=== PATIENT | female | born 1940 | race Caucasian/White ===

== ENCOUNTER 2020-01-28 09:46 | Emergency (ER) | payer OTHER, MEDICARE, SELFPAY ==
--- NOTE | ~2020-01-28 | XR_ITS ---
EXAMINATION: XR toe 1st LT min 2V DATE: 01/28/2020 11:25 INDICATION: Left great toe injury. TECHNIQUE: 4 views of left great toe were obtained. COMPARISON: None. FINDINGS: Bone alignment is normal. There is a comminuted fracture of base of first distal phalanx wi th involvement of the articular surface. The main distal fracture fragment demonstrates near-anatomic alignment. There is mild osteoarthritis of first metatarsophalangeal joint and first interphalangeal joint. IMPRESSION: 1. Comminuted fracture of first distal phalanx. Reviewed, dictated and finalized at location B. ULTURIST
[2020-01-28 09:53] VITALS: BP 153/107; PULSE 95; RESP 16; TEMP 36.7; O2SAT 100
--- NOTE | 2020-01-28 11:05 | ED.LOWEXIN ---
HPI - Extremity Injury (Lower) General Chief Complaint: Extremity Injury, Lower Stated Complaint: fall, laceration to toe Time Seen by Provider: 01/28/20 10:51 Source: patient Mode of arrival: ambulatory Limitations: no limitations History of Present Illness HPI Narrative: This is a 79 year old female that presents to the ER for left great toe injury sustained just prior to arrival. Reports she was at the pool and got her toe caught on a metal drain. Reports this caused her to fall onto her right side. Denies hitting her head or loss of consciousness. Reports a laceration to the left great toe with pain. She is not up-to-date on tetanus. Denies other injuries, or prodromal symptoms. Related Data Allergies Allergy/AdvReac Type Severity Reaction Status Date / Time No Known Allergies Allergy Verified 01/28/20 09:57 Review of Systems Review of Systems: Narrative: CONSTITUTIONAL: Denies fever SKIN: Reports laceration MUSCULOSKELETAL: Denies back pain, joint pain, or myalgia. All systems reviewed & are unremarkable except as noted in HPI and below PMFSH Past Medical History Medical History (Updated 01/28/20 @ 13:19 by Kimberly Perez PA-C) History of inflammatory bowel disease Social History Social History (Updated 01/28/20 @ 11:09 by Kimberly Perez PA-C) Smoking status: Never smoker Gender identity (if verbalized by the patient): Female Exam Narrative: Exam Narrative: GENERAL: Well-appearing, well-nourished, and in no acute distress. HEAD: Normocephalic, atraumatic. EYES: PERRLA and EOMI. ENT: Nares clear, no rhinorrhea or epistaxis. Mucous membranes moist. Oropharynx without tonsillar hypertrophy exudate or other lesions. Bilateral TMs pearly chapa non-bulging NECK: Supple. No adenopathy or masses. CHEST: Clear to auscultation. No respiratory distress. No wheezes rales or rhonchi HEART: Regular rate and rhythm. No murmur heard. Normal peripheral pulses. EXTREMITIES: Normal range of motion. No edema or obvious deformity. Left great toe with 2 cm linear laceration into subcutaneous tissue of the distal phalanx with mild active oozing SKIN: Warm, dry, no rash. NEURO: No focal deficits. Alert and oriented x3. Cranial nerves II through XII grossly intact PSYCH: Normal mood and affect Course Vital Signs Vital signs: Vital Signs Temperature 98.1 F 01/28/20 09:53 Pulse Rate 95 01/28/20 09:53 Respiratory Rate 16 01/28/20 09:53 Blood Pressure 153/107 H 01/28/20 09:53 Pulse Oximetry 100 01/28/20 09:53 Temperature 98.1 F 01/28/20 09:53 Pulse Rate 95 01/28/20 09:53 Respiratory Rate 16 01/28/20 09:53 Blood Pressure 153/107 H 01/28/20 09:53 Pulse Oximetry 100 01/28/20 09:53 Procedures Laceration Laceration 1: Date: 01/28/20 Time: 13:17 Site: lower extremity Side (If applicable): left Size (cm): 2 Description: linear Depth: simple, single layer Local Anesthetic: lidocaine 1% Amount of anesthesia used (mL): 5 Pre-repair: irrigated ====== Skin Level ====== Skin layer closed with: nylon Size (cm): 4-0 Number of sutures: 3 Technique: simple, interrupted ====== Subcutaneous Layer ====== ====== Muscle Layer ====== ====== Tendon Layer ====== MDM - Extremity Injury (Lower) MDM Narrative Medical decision making narrative: Patient presents the emergency department for left great toe injury. X-ray shows a comminuted fracture of the distal phalanx. Patient's laceration was irrigated and closed with sutures. She was updated on tetanus. Toe was arjun taped and she was given a postop shoe. Will be started on a prophylactic oral antibiotic. She is to follow-up with her primary care doctor. She was given warnings to return to the ER Imaging Data Radiologist's impression: ITS Impressions Toe X-Ray 01/28/20 11:37 IMPRESSION: 1. Comminuted fracture of first distal phala
[2020-01-28] MEDS: ACETAMINOPHEN 500 MG TABLET 1000 MG PO (11:26)
[2020-01-28] MEDS: TETANUS,DIPHTHERIA,AC PERTUSSIS ADULT (0.5 ML) BOOSTRIX IM (11:26)
--- NOTE | 2020-01-28 11:26 | PC.NURSE ---
Bedside report to CAROLINE Westbrook
[2020-01-28 13:27] VITALS: BP 173/94; PULSE 72; RESP 18; TEMP 36.4; O2SAT 93
--- NOTE | 2020-01-28 13:50 | PC.NURSE ---
Notified HAROON Perez of pt's blood pressure 173/94 Orders for pt to follow up with primary care physician. Pt informed and states understanding.
== END 2020-01-28 13:50 | disposition home or self-care (01) ==
PROVIDERS: Emergency Provider Emergency Medicine; PCP Internal Medicine
DX: S92.425A Nondisplaced fracture of distal phalanx of left great toe, initial encounter for closed fracture (principal); X58.XXXA Exposure to other specified factors, initial encounter; S91.212A Laceration without foreign body of left great toe with damage to nail, initial encounter; Z23 Encounter for immunization
CPT/HCPCS: 12001; 73660; 90471; 90715; 99284; A9270; J0171

== ENCOUNTER 2020-10-28 14:04 | Emergency (ER) | payer MEDICARE, SELFPAY ==
[2020-10-28] VITALS (12 sets, daily range): BP systolic 78–127; BP diastolic 53–78; PULSE 88–132; RESP 16–20; TEMP 36.3–36.8; O2SAT 98–100
--- NOTE | ~2020-10-28 | CT_ITS ---
EXAMINATION: CT abdomen pelvis wo con DATE: 10/28/2020 18:35 INDICATION: Diarrhea. Weakness. Pancreatitis. TECHNIQUE: Computed tomography (CT) of the abdomen and pelvis was performed without intravenous contr ast. The dose-length product was 607.89 mGy-cm. Automated exposure control and iterative reconstructi on technique were employed. COMPARISON: None. FINDINGS: Bibasilar dependent atelectasis. Heart size is normal. Small hiatal hernia. There is athero sclerosis without aneurysm. Status post cholecystectomy. No lymphadenopathy. There is segmental thickening of the proximal transverse and sigmoid colon, suspicious for colitis. N o obstruction. No free air or free fluid. The liver, spleen, pancreas, adrenal glands and kidneys are unremarkable. There are accessory splenul es at the splenic hilum. There are surgical changes in the anterior abdominal wall. There is a dynami c compression screw with intramedullary jarad in the left femur. There is a L2 burst fracture, likely c hronic. There is advanced multilevel lumbar spondylosis with grade 1 spondylolisthesis at L4-5. IMPRESSION: 1. Segmental thickening in the proximal transverse and sigmoid colon, suspicious for colitis. 2: Small hiatal hernia. Reviewed, dictated and finalized at location A. IMPRESSION: 1. Segmental thickening in the proximal transverse and sigmoid colon, suspiciou s for colitis. 2: Small hiatal hernia.
--- NOTE | 2020-10-28 14:44 | ED.WEAKNESS ---
HPI - Weakness General Chief complaint: Arrhythmia/Palpitations Stated complaint: diarrhea, no appetite,weakness Time Seen by Provider: 10/29/20 07:33 Source: patient and RN notes reviewed Mode of arrival: ambulatory Limitations: no limitations History of Present Illness MD Complaint: generalized weakness Onset (ago): day(s) (4) Duration: intermittent Location: generalized Migration: none Severity: moderate Relieving factors: none Exacerbating factors: exertion Context: recent illness Associated symptoms: other (diarrhea) Related Data Home Medications Medication Instructions Recorded Confirmed Prolia MONTHLY 10/28/20 balsalazide 750 mg PO DAILY 10/28/20 10/28/20 lisinopril 10 mg PRN 10/28/20 10/28/20 Allergies Allergy/AdvReac Type Severity Reaction Status Date / Time No Known Allergies Allergy Verified 01/28/20 09:57 Review of Systems Constitutional: Constitutional: Denies chills and Denies fever(s) Cardiovascular: Cardiovascular: Denies chest pain Respiratory: Respiratory: Denies cough and Denies dyspnea Gastrointestinal: Gastrointestinal: Reports diarrhea, Denies nausea and Denies vomiting Genitourinary: Genitourinary: Denies dysuria Musculoskeletal: Musculoskeletal: Denies myalgias [facility] Past Medical History Medical History (Updated 10/30/20 @ 00:00 by Background Daemon) History of inflammatory bowel disease Hypertension Social History Social History Smoking status: Never smoker Gender identity (if verbalized by the patient): Female Exam Const: General: healthy appearing and no acute distress Nutritional Appearance: well nourished Orientation/consciousness: patient oriented x3 HENMT: Head: normal to inspection Ears: external ears normal Face and sinus: normal facial exam Mouth: Yes moist mucous membranes Eyes: Conjunctivae: conjunctivae normal Pupils: Equal, round and reactive pupils present EOM: EOMs intact bilaterally Neck: Neck: normal visual inspection Resp: Effort & Inspection: normal respiratory effort Auscultation: clear to auscultation bilaterally Cardio: Rate: regular rate and tachycardic Rhythm: abnormal rhythm irregularly irregular GI: GI Palp: Yes Soft to palpation and No Tenderness to palpation present (GI) Auscultation: normal bowel sounds Back/Spine/Pelvis: Back: no CVA tenderness Cervical Spine: cervical ROM normal Thoracic/Lumbar Spine: thoraco-lumbar ROM normal Skin: General skin exam: normal color Neuro: General: patient oriented x3, moves all extremities, no meningeal signs and no focal motor deficits Speech: normal speech Gait exam (Neuro): Normal gait present Extrem: General: normal to inspection and no pedal edema Psych: Appearance: grossly normal and well kempt Mental Status: mental status grossly normal Affect: normal affect Attitude: cooperative Thought content: Yes Normal thought content present Course Vital Signs Vital signs: Vital Signs Temperature 36.3 C L 10/28/20 15:46 Pulse Rate 120 H 10/28/20 15:46 Respiratory Rate 16 10/28/20 15:46 Blood Pressure 94/77 L 10/28/20 15:46 Pulse Oximetry 98 10/28/20 15:46 Temperature 36.4 C 10/29/20 20:59 Pulse Rate 92 10/29/20 21:35 Respiratory Rate 20 10/29/20 20:59 Blood Pressure 114/73 10/29/20 21:35 Pulse Oximetry 98 10/29/20 20:59 MDM - Weakness Lab Data Result diagrams: 10/29/20 17:45 10/29/20 17:45 Labs: Lab Results 10/28/20 10/28/20 10/28/20 Range/Units 15:54 15:54 15:54 WBC 8.0 (4.8-10.8) K/mm3 RBC 4.53 (4.20-5.40) M/mm3 Hgb 13.3 (11.7-13.8) g/dL Hct 40.1 (35.0-42.0) % MCV 88.5 (78.0-102.0) fL MCH 29.4 (27.0-31.0) pg MCHC 33.2 (32.0-36.0) g/dL RDW 13.1 (11.6-14.4) % Plt Count 256 (150-420) K/mm3 MPV 10.5 (9.2-11.8) fl Immature Gran % (Auto) 1.6 H (0.0-0.0) % Neut % (Auto) 67.7 (50.0-70.
--- NOTE | 2020-10-28 15:45 | ECG_ITS ---
Measurements Intervals [place] Rate: 131 P: LA: 0 QRS: -50 QRSD: 157 T: 120 QT: 335 QTc: 496 Interpretive Statements ATRIAL FIBRILLATION WITH RAPID VENTRICULAR RESPONSE VENTRICULAR COUPLETS AND VENTRICULAR PREMATURE COMPLEXES LEFT AXIS DEVIATION LEFT BUNDLE BRANCH BLOCK ABNORMAL ECG Electronically Signed On 10-28-2020 16:06:35 CDT by Socrates Farris D.O.
[2020-10-28 16:02] LABS: Basophils Absolute Auto 0.03 K/mm3 (0.00-0.10); Basophils Percent Auto 0.4 % (0.0-1.0); Eosinophils Percent Auto 1.2 % (1.0-6.0); Hematocrit 40.1 % (35.0-42.0); Hemoglobin 13.3 g/dL (11.7-13.8); Immature Granulocyte Absolute 0.13 K/mm3 (0.00-0.00); Immature Granulocyte Percent A 1.6 % (0.0-0.0); Lymphocytes Absolute Auto 1.29 K/mm3 (1.10-4.50); Lymphocytes Percent Auto 16.1 % (18.0-42.0); Mean Corpuscular HGB Conc 33.2 g/dL (32.0-36.0); Mean Corpuscular Hemoglobin 29.4 pg (27.0-31.0); Mean Corpuscular Volume 88.5 fL (78.0-102.0); Mean Platelet Volume 10.5 fl (9.2-11.8); Monocytes Absolute Auto 1.04 K/mm3 (0.10-0.90); Neutrophils Absolute Auto 5.4 K/mm3 (1.7-7.2); Neutrophils Percent Auto 67.7 % (50.0-70.0); Platelet Count Result 256 K/mm3 (150-420); Red Blood Count 4.53 M/mm3 (4.20-5.40); Red Cell Distribution Width 13.1 % (11.6-14.4)
[2020-10-28] MEDS: SODIUM CHLORIDE 0.9% IV 1,000 ML 999 ML IV CONT (16:15)
--- NOTE | 2020-10-28 16:25 | PC.NURSE ---
BP 78/63, HR 120s. Pt has zero pain or SOB. Discussed with ERP, will hold the diltiazem until until after IVF bolus complete and reevaluate.
[2020-10-28 16:39] LABS: Alanine Aminotransferase 38 U/L (14-59); Albumin Level 3.3 g/dL (3.4-5.0); Alkaline Phosphatase 73 U/L (46-116); Anion Gap 14 mmol/L (8-16); Aspartate Amino Transferase 32 U/L (15-37); Bilirubin,Total 0.5 mg/dL (0.00-1.00); Blood Urea Nitrogen 77 mg/dL (7-18); Calcium 8.7 mg/dL (8.5-10.1); Carbon Dioxide 24 mmol/L (21-32); Chloride 98 mmol/L (98-108); Estimated Glomerular Filt Rate 8; Glucose 154 mg/dL (70-99); Osmolality Calculated 308 mOsm/kg (285-295); Potassium 2.7 mmol/L (3.5-5.1); Sodium 136 mmol/L (136-145); Total Protein 7.1 g/dL (6.4-8.2)
[2020-10-28 16:43] LABS: Lipase 1646 U/L (73-393)
[2020-10-28 16:44] LABS: Magnesium 2.2 mg/dL (1.8-2.4); Thyroid Stimulating Hormone 1.46 uIU/mL (0.36-3.74); Troponin I 46.2 ng/L (0.00-60.4)
[2020-10-28 16:47] LABS: CRP 5.5 mg/dL (0.0-0.9)
[2020-10-28] MEDS: dilTIAZem HCl INJ 25 MG/5 ML VIAL 15 MG IV PUSH (16:59)
[2020-10-28] MEDS: SODIUM CHLORIDE 0.9% IV 1,000 ML 200 ML IV CONT (17:43)
[2020-10-28] MEDS: KCL 20 MEQ/SW 100 ML 100 ML 50 MEQ IVPB (19:23)
--- NOTE | 2020-10-28 19:53 | PC.NURSE ---
Patient requires transfer to higher level of care. Calls placed to [facility] and no beds at facilities, [facility] and no beds, [facility] and no beds, [facility] and no beds but patient is now on waiting list and face sheet was faxed. [facility] reports possible beds tomorrow. Patient will stay in the ER overnight for close monitoring. Patient and aware. Patient remains on diltiazem gtt.
[2020-10-28 20:31] LABS: Add Urine Microscopic? YES; Appearance Urine Clear (Clear); Bilirubin Urine Negative (Negative); Blood Urine Negative (Negative); Color Urine Light Yellow (Yellow); Glucose Urine UA Negative (Negative); Ketones Urine Negative (Negative); Leukocyte Esterase Ur 1+ LEU/UL (Negative); Nitrate Urine Negative (Negative); Protein Urine Trace (Negative); Specific Grav Ur 1.025 (1.010-1.020); Urobilinogen Urine 0.2 mg/dL (0.2-1.0); pH Urine 5.5 (5.0-8.0)
[2020-10-28 20:36] LABS: Bacteria Urine 1+ /hpf; RBC Urine 0-2 /hpf (0-2); Squamous Epithelial Cell Urine Few /hpf (Few)
[2020-10-28] MEDS: POTASSIUM BICARBONATE 25 MEQ TABEF PO (21:36)
--- NOTE | 2020-10-28 21:46 | PC.NURSE ---
Patient up out of bed without calling for help, she pulled out her left forearm IV and had loose BM across the floor along with bleeding from the arm which was controlled with pressure. Patient has had multiple episodes of loose stools, ERP aware. New Left AC IV placed and infusions restarted. Patient cleaned up and returned to bed. She seems AOx3 and answers questions appropriately however she is impulsive and forgetful. She was reminded to call for help, call light within reach, she has been given PO fluids. Diltazem gtt restarted, she remains in A-fib 90-120s. Continue to await transfer bed, pt likely will remain in the ER overnight.
--- NOTE | 2020-10-28 22:26 | PC.NURSE ---
pt resting per cot, continues on iv fluids as ordered. infusing without difficulty. glasses off, lights out, tv off . encouraged sleep. pt voiced understanding
[2020-10-29] VITALS (14 sets, daily range): BP systolic 89–114; BP diastolic 51–84; PULSE 62–107; RESP 18–20; TEMP 36.4–36.9; O2SAT 95–100
[2020-10-29] MEDS: SODIUM CHLORIDE 0.9% IV 1,000 ML 200 ML ×2 (01:11→06:05)
--- NOTE | 2020-10-29 04:34 | PC.NURSE ---
call from [facility] for [facility] hospitals. updated report and vitals. no beds available at this time.
[2020-10-29 06:08] LABS: Anion Gap 13 mmol/L (8-16); Blood Urea Nitrogen 62 mg/dL (7-18); Calcium 7.5 mg/dL (8.5-10.1); Carbon Dioxide 20 mmol/L (21-32); Chloride 106 mmol/L (98-108); Estimated Glomerular Filt Rate 15; Glucose 101 mg/dL (70-99); Lipase 952 U/L (73-393); Osmolality Calculated 305 mOsm/kg (285-295); Potassium 3.1 mmol/L (3.5-5.1); Sodium 139 mmol/L (136-145)
[2020-10-29] MEDS: KCL 20 MEQ/SW 100 ML 100 ML 50 MEQ IVPB (07:02)
--- NOTE | 2020-10-29 07:05 | PC.NURSE ---
report to CAROLINE doshi
--- NOTE | 2020-10-29 07:15 | PC.NURSE ---
REPORT RECEIVED FROM CAROLINE MCFARLAND.
--- NOTE | 2020-10-29 07:47 | PC.NURSE ---
ROUNDS COMPLETED BY RN. PT IS ALERT AND ORIENTED AND DENIES COMPLAINTS AT THIS TIME. PT UP TO BSC WITH STANDBY ASSIST. NS IVF INFUSING AND K+ INFUSING WITHOUT ISSUE, IV ACCESS WNL
[2020-10-29 08:17] LABS: Troponin I 32.6 ng/L (0.00-60.4)
--- NOTE | 2020-10-29 08:41 | PC.NURSE ---
CLEAR LIQUID CAFE TRAY PROVIDED
[2020-10-29 08:51] LABS: Occult Blood Negative (Negative)
[2020-10-29 09:14] LABS: SARS-CoV-2 Ag Negative (Negative)
--- NOTE | 2020-10-29 10:59 | PC.NURSE ---
RN CONTACTED DEQUAN ANTUNEZ RN, TO REQUEST ER HOLD ROOM AT 1053
[2020-10-29] MEDS: ENOXAPARIN 100 MG/ML SYRINGE 65 MG SUB-Q (15:50)
--- NOTE | 2020-10-29 17:01 | PC.NURSE ---
[facility] CONTACTED ED TO INFORM OF ACCEPTANCE TO [facility]. [facility] STATES THE ACCEPTING PHYSICIAN WILL CALL BACK TO GET REPORT
[2020-10-29 17:50] LABS: Basophils Absolute Auto 0.04 K/mm3 (0.00-0.10); Basophils Percent Auto 0.6 % (0.0-1.0); Eosinophils Absolute Auto 0.11 K/mm3 (0.02-0.50); Eosinophils Percent Auto 1.7 % (1.0-6.0); Hematocrit 37.5 % (35.0-42.0); Hemoglobin 12.6 g/dL (11.7-13.8); Immature Granulocyte Absolute 0.13 K/mm3 (0.00-0.00); Lymphocytes Absolute Auto 0.97 K/mm3 (1.10-4.50); Lymphocytes Percent Auto 15.1 % (18.0-42.0); Mean Corpuscular HGB Conc 33.6 g/dL (32.0-36.0); Mean Corpuscular Hemoglobin 30.1 pg (27.0-31.0); Mean Corpuscular Volume 89.5 fL (78.0-102.0); Mean Platelet Volume 10.2 fl (9.2-11.8); Monocytes Absolute Auto 0.53 K/mm3 (0.10-0.90); Monocytes Percent Auto 8.2 % (2.0-11.0); Neutrophils Absolute Auto 4.7 K/mm3 (1.7-7.2); Neutrophils Percent Auto 72.4 % (50.0-70.0); Platelet Count Result 196 K/mm3 (150-420); Red Blood Count 4.19 M/mm3 (4.20-5.40); Red Cell Distribution Width 13.2 % (11.6-14.4); White Blood Count 6.4 K/mm3 (4.8-10.8)
[2020-10-29 18:19] LABS: Anion Gap 12 mmol/L (8-16); Blood Urea Nitrogen 42 mg/dL (7-18); Calcium 7.6 mg/dL (8.5-10.1); Carbon Dioxide 22 mmol/L (21-32); Chloride 106 mmol/L (98-108); Estimated Glomerular Filt Rate 23; Glucose 106 mg/dL (70-99); Lipase 891 U/L (73-393); NT Pro B Type Natriuretic Pept 2501 pg/mL (0-450); Osmolality Calculated 300 mOsm/kg (285-295); Potassium 3.6 mmol/L (3.5-5.1); Sodium 140 mmol/L (136-145); Troponin I 22.3 ng/L (0.00-60.4)
== END 2020-10-29 21:30 | disposition short-term general hospital (02) ==
PROVIDERS: Emergency Medicine; Emergency Provider Emergency Medicine; PCP Internal Medicine
DX: I48.91 Unspecified atrial fibrillation (principal); E87.6 Hypokalemia; N17.9 Acute kidney failure, unspecified; K85.90 Acute pancreatitis without necrosis or infection, unspecified; I10 Essential (primary) hypertension; Z20.822 Contact with and (suspected) exposure to COVID-19
CPT/HCPCS: 36415; 74176; 80048; 80053; 81001; 82272; 83690; 83735; 83880; 84443; 84484; 85025; 86140; 87040; 87045; 87086; 87088; 87186; 87269; 87272; 87324; 87426; 87427; 89055; 93005; 96361; 96365; 96366; 96368; 96372; 99285; A9270; C9803; J1650; J3480; J7030

== ENCOUNTER 2021-09-15 16:19 | Outpatient (CLI) | payer MEDICARE, SELFPAY ==
[2021-09-15 16:41] LABS: Basophils Absolute Auto 0.03 K/mm3 (0.00-0.10); Basophils Percent Auto 0.4 % (0.0-1.0); Eosinophils Absolute Auto 0.13 K/mm3 (0.02-0.50); Eosinophils Percent Auto 1.6 % (1.0-6.0); Hematocrit 41.9 % (35.0-42.0); Hemoglobin 13.2 g/dL (11.7-13.8); Immature Granulocyte Absolute 0.04 K/mm3 (0.00-0.00); Immature Granulocyte Percent A 0.5 % (0.0-0.0); Lymphocytes Absolute Auto 1.15 K/mm3 (1.10-4.50); Lymphocytes Percent Auto 13.8 % (18.0-42.0); Mean Corpuscular HGB Conc 31.5 g/dL (32.0-36.0); Mean Corpuscular Hemoglobin 29.5 pg (27.0-31.0); Mean Corpuscular Volume 93.5 fL (78.0-102.0); Mean Platelet Volume 10.5 fl (9.2-11.8); Monocytes Absolute Auto 0.68 K/mm3 (0.10-0.90); Monocytes Percent Auto 8.2 % (2.0-11.0); Neutrophils Absolute Auto 6.3 K/mm3 (1.7-7.2); Neutrophils Percent Auto 75.5 % (50.0-70.0); Platelet Count Result 189 K/mm3 (150-420); Red Blood Count 4.48 M/mm3 (4.20-5.40); Red Cell Distribution Width 15.9 % (11.6-14.4); White Blood Count 8.3 K/mm3 (4.8-10.8)
[2021-09-15 17:31] LABS: Alanine Aminotransferase 32 U/L (14-59); Albumin Level 3.6 g/dL (3.4-5.0); Alkaline Phosphatase 66 U/L (46-116); Anion Gap 7 mmol/L (8-16); Aspartate Amino Transferase 25 U/L (15-37); Bilirubin,Total 0.6 mg/dL (0.00-1.00); Blood Urea Nitrogen 22 mg/dL (7-18); Calcium 8.7 mg/dL (8.5-10.1); Carbon Dioxide 28 mmol/L (21-32); Chloride 105 mmol/L (98-108); Estimated Glomerular Filt Rate 38; Glucose 92 mg/dL (70-99); Magnesium 1.9 mg/dL (1.8-2.4); Osmolality Calculated 293 mOsm/kg (285-295); Potassium 4.3 mmol/L (3.5-5.1); Sodium 140 mmol/L (136-145); Vitamin B12 546 pg/mL (193-986)
[2021-09-22 19:58] LABS: Calprotectin, Stool 422 mcg/g
== END 2021-09-15 16:20 | disposition home or self-care (01) ==
LOC: CHSLAB 16:24
PROVIDERS: PCP Internal Medicine; Visit Provider Physician Assistant Medical
DX: K51.90 Ulcerative colitis, unspecified, without complications (principal)
CPT/HCPCS: 36415; 80053; 82607; 83735; 83993; 85025

== ENCOUNTER 2022-01-25 11:53 | Outpatient (CLI) | payer MEDICARE, SELFPAY ==
--- NOTE | ~2022-01-25 | XR_ITS ---
XR hip RT min 2V DATE: 01/25/2022 12:21 INDICATION: Lateral right hip pain for one week. No known injury. TECHNIQUE: AP and lateral views of right hip COMPARISON: None FINDINGS: There is patchy sclerosis of the right femoral head raising concern for possible avascular necrosis. Consider further evaluation with CT right hip or preferably MR right hip examination.. No d epression of the cortex of the femoral head is detected. No fracture or dislocation or bone destructi on is noted otherwise. Right hip joint space appears relatively preserved. Osteopenia. Normal alignment of the tube is also some right sacral iliac joint Radiopaque sutures overlie the mid pelvis. IMPRESSION: Patchy sclerosis of right femoral head, raising concern for possible avascular necrosis. Consider further evaluation with CT or preferably MRI examination Osteopenia Reviewed, dictated and finalized at location B. ISSIONED POLICE OFFICER IMPRESSION: Patchy sclerosis of right femoral head, raising concern for possibl e avascular necrosis. Consider further evaluation with CT or preferably MRI exa mination Osteopenia
== END 2022-01-25 11:54 | disposition home or self-care (01) ==
PROVIDERS: PCP Internal Medicine; Visit Provider Internal Medicine
DX: M25.551 Pain in right hip (principal)
CPT/HCPCS: 73502

== ENCOUNTER 2022-07-18 13:11 | Emergency (ER) | payer MEDICARE, SELFPAY ==
--- NOTE | ~2022-07-18 | CT_ITS ---
EXAMINATION: CT pelvis wo con DATE: 07/18/2022 14:19 INDICATION: Right hip pain post fall. TECHNIQUE: High resolution computed tomography (CT) of the pelvis was performed without intravenous c ontrast. Additional sagittal and coronal reconstructions were performed. Automated exposure control a nd iterative reconstruction technique were employed. The dose-length product was 216.30 mGy-cm. COMPARISON: 01/25/2022 FINDINGS: old healed intratrochanteric fracture of the left femur with antegrade intramedullary jarad and femoral neck dynamic compression screw fixation. There is osteonecrosis at the anterior to superior right fe moral head with linear lucency extending across portions of the articular cortex at the margins of th e osteonecrosis and with subtle flattening of the articular cortex. There is additional significant s maller region of osteonecrosis at the anterosuperior left femoral head without evident fragmentation or flattening of the articular cortex. No other acute fractures identified. Osteoarthritis of the giacomo ateral hips, mild on the left and moderate on the right. No hip joint effusions. Mild to moderate lower lumbar spondylosis with 3 mm anterolisthesis L4 on L5 and severe facet osteoar thritis bilaterally at L4-L5 and L5-S1. Mild left and moderate right hip osteoarthritis. Postoperativ e changes with multiple sutures along the anterior pelvic wall. There are few scattered sigmoid diver ticula without adjacent inflammation presenting to suggest appendicitis. The remainder of the visuali zed bowels including the appendix are normal. Bladder, uterus and right adnexa are unremarkable. 2.5 cm left adnexal cyst. IMPRESSION: 1. 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 No other acute osseous abnormality. Reviewed, dictated and finalized at location A. IMPRESSION: 1. 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 No other acute osseous ab normality.
--- NOTE | ~2022-07-18 | CT_ITS ---
EXAMINATION: CT cervical spine wo con DATE: 07/18/2022 14:18 INDICATION: Head injury. TECHNIQUE: Computed tomography (CT) of the cervical spine was performed without intravenous contrast. Automated exposure control and iterative reconstruction technique were employed. The dose-length pro duct was 120.78 mGy-cm. COMPARISON: None FINDINGS: There is 2 mm anterolisthesis of C4 on C5. Vertebral body heights are normal. There is mild ly decreased disc height at C4-C5 and severely decreased disc height at C5-C6 and C6-C7. The followin g disc levels are specifically discussed: C2-C3: There is mild left uncovertebral joint osteoarthritis. There is mild bilateral facet joint ost eoarthritis. There is no neural foraminal stenosis. There is no central canal stenosis. C3-C4: There is mild right and moderate left uncovertebral joint osteoarthritis. There is moderate ri ght and severe left facet joint osteoarthritis. There is mild bilateral neural foraminal stenosis. Th ere is mild central canal stenosis. C4-C5: There is mild bilateral uncovertebral joint osteoarthritis. There is severe bilateral facet raissa int osteoarthritis. There is mild right and moderate left neural foraminal stenosis. There is mild ce ntral canal stenosis. C5-C6: There is severe right and mild left uncovertebral joint osteoarthritis. There is moderate righ t and severe left facet joint osteoarthritis. There is moderate right and mild left neural foraminal stenosis. There is mild central canal stenosis. C6-C7: There is severe bilateral uncovertebral joint osteoarthritis. There is moderate right and mild left facet joint osteoarthritis. There is mild bilateral neural foraminal stenosis. There is mild ce ntral canal stenosis. C7-T1: There is no uncovertebral joint osteoarthritis. There is severe right and mild left facet join t osteoarthritis. There is moderate neural foraminal stenosis. There is no central canal stenosis. IMPRESSION: 1. No fracture. 2. Severe cervical spondylosis. Reviewed, dictated and finalized at location A.
--- NOTE | ~2022-07-18 | CT_ITS ---
EXAMINATION: CT brain w con DATE: 07/18/2022 15:51 INDICATION: Mass along the falx indeterminate for hematoma versus meningioma on prior noncontrast CT TECHNIQUE: Computed tomography (CT) of the head was performed with 100 mL Omnipaque-350 intravenous c ontrast. Sagittal and coronal reconstructions were performed. The mA was adjusted according to patien t size. Iterative reconstruction technique was employed. The dose-length product was 605.33 mGy-cm. COMPARISON: head CT dated 07/18/2022 at 2:00 PM FINDINGS: The caudal aspect of the brainstem and cerebellum is excluded from the region of imaging. There is in tense enhancement associated with the dural based mass along the right side of the posterior falx whi ch measures 1.8 cm AP, 1.4 cm craniocaudally and 9 mm in thickness consistent with a meningioma. No o ther masses or abnormally enhancing brain lesions identified. Again seen is a small old infarct at th e left cerebellar hemisphere. No acute intracranial hemorrhage, acute infarction or abnormal extra ax ial fluid collection. There is excessive scattered white matter hypoattenuation consistent with chron ic small vessel ischemic disease. Ventricles are normal and symmetric. Changes of bilateral intraocu lar lens replacement. The orbits, paranasal sinuses and mastoid air cells are normal. IMPRESSION: 1. Intense enhancement associated with the 1.8 cm hyperdense pleural-based mass along the right side of the falx consistent with a meningioma. 2. 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 No other acute intracranial process. 3. Extensive scattered white matter hypoattenuation consistent with chronic small vessel ischemic dis ease. Reviewed, dictated and finalized at location A. IMPRESSION: 1. Intense enhancement associated with the 1.8 cm hyperdense pleural-based mass along the right side of the falx consistent with a meningioma. 2. 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 No other acute intracranial proces s. 3. Extensive scattered white matter hypoattenuation consistent with chronic sma ll vessel ischemic disease.
--- NOTE | ~2022-07-18 | CT_ITS ---
EXAMINATION: CT brain wo con DATE: 07/18/2022 14:17 INDICATION: Head injury. TECHNIQUE: Computed tomography (CT) of the head was performed without intravenous contrast. The mA wa s adjusted according to patient size. Iterative reconstruction technique was employed. The dose-lengt h product was 605.33 mGy-cm. COMPARISON: None FINDINGS: There is a small old infarct in left cerebellum. There are scattered areas of low attenuati on in the cerebral white matter. There is a 1.8 x 0.9 x 1.5 cm hyperdense extra-axial mass with dural tails at the right side of the falx adjacent to the right parietal lobe. There is no acute ischemic infarct. The ventricles are normal in size. There is mild mucosal thickening in the paranasal sinuses . The mastoid air cells are normal. IMPRESSION: 1. 1.8 cm hyperdense mass at the right of the falx adjacent to the right parietal lobe, likely a meni ngioma. Consider head CT with contrast to exclude acute subdural hematoma. 2. 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 3. Extensive nonspecific cerebral white matter disease, which likely represents chronic small vessel ischemic disease. Reviewed, dictated and finalized at location A. IMPRESSION: 1. 1.8 cm hyperdense mass at the right of the falx adjacent to the right pariet al lobe, likely a meningioma. Consider head CT with contrast to exclude acute s ubdural hematoma. 2. 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 3. Extensive nonspecific cerebral white matter disease, which likely represents chronic small vessel ischemic disease.
--- NOTE | ~2022-07-18 | XR_ITS ---
EXAMINATION: XR chest 1V portable DATE: 07/18/2022 14:20 INDICATION: Weakness. TECHNIQUE: A single frontal view of the chest was obtained. COMPARISON: CT abdomen and pelvis 10/28/20 FINDINGS: A calcified left lung nodule is consistent with old granulomatous disease. No pleural effus ion or pneumothorax. Cardiomegaly is noted. IMPRESSION: 1. Cardiomegaly. Reviewed, dictated and finalized at location A. IMPRESSION: 1. Cardiomegaly.
[2022-07-18 13:16] VITALS: BP 136/86; PULSE 86; RESP 20; TEMP 37.9; O2SAT 96
--- NOTE | 2022-07-18 13:18 | ECG_ITS ---
Measurements Intervals [place] Rate: 86 P: MT: 0 QRS: 33 QRSD: 93 T: 60 QT: 341 QTc: 409 Interpretive Statements ATRIAL FIBRILLATION VENTRICULAR PREMATURE COMPLEX BASELINE WANDER- I, III, AVF ABNORMAL ECG COMPARED TO ECG 10/28/2020 15:49:41 HEART RATE HAS DECREASED LEFT BUNDLE BRANCH BLOCK NO LONGER PRESENT Electronically Signed On 07-18-2022 13:52:41 CDT by Socrates Farris D.O.
--- NOTE | 2022-07-18 13:38 | PC.NURSE ---
1320 hard cervicale collar applied
--- NOTE | 2022-07-18 13:48 | ED.GENADULT ---
HPI - General Adult General Chief complaint: Weakness Stated complaint: Weakness Time Seen by Provider: 07/18/22 13:16 Source: patient and family Mode of arrival: wheelchair Limitations: no limitations History of Present Illness HPI narrative: Patient is 81-year-old white female fell 2 days ago backwards hit her head on the door knob and then fell on her buttocks. To been okay that day and yesterday and then today she had difficulty walking. Feels weak in the legs. 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 Rest use a walker to get around for the most part. She can you walk without the walker. She is getting weaker it is harder to get around to the point where over the last several months she has had a bedside commode so she does not have to get up and walk to the bathroom at nighttime. This morning she woke up and went to the commode around 7:00 p.m.. But later in the morning she was unable to get out of bed to go to the bathroom Or to her commode. Her son had to come over help her out of bed and walk behind her why she walked over to the commode and then needed help getting back into bed. Was decided that she probably would be able to get out of bed again without help and that she needed evaluated. She could lift her own legs in order to get back into bed and the son had to help her. Denies any numbness she has had progressive weakness in her lower extremities especially on the right side. Denies any headache she said that the back of her neck is a little sore when she pushes on. Denies any cough shortness of breath runny nose fever any pain elsewhere lumps or bumps swelling except on the back of her head. Denies any bleeding or bruising rash or itching weakness in her arms or paresthesias or numbness. She sometimes gets tingling in her fingers off and on for months. denies any other complaints. Past medical history AFib on Eliquis , hyperlipidemia, some type of right hip arthritis Related Data Home Medications Medication Instructions Recorded Confirmed Prolia 1 unit IM MONTHLY 10/28/20 balsalazide 750 mg capsule 1,500 mg PO BID 10/28/20 07/18/22 apixaban 5 mg tablet (Eliquis) 5 mg PO DAILY 07/18/22 07/18/22 atorvastatin 40 mg tablet 40 mg PO DAILY 07/18/22 07/18/22 digoxin 125 mcg (0.125 mg) tablet 125 mcg PO DAILY 07/18/22 07/18/22 hydralazine 25 mg tablet 25 mg PO DAILY 07/18/22 07/18/22 isosorbide mononitrate 30 mg 30 mg PO DAILY 07/18/22 07/18/22 tablet,extended release 24 hr spironolactone 25 mg tablet 25 mg PO DAILY 07/18/22 07/18/22 Allergies Allergy/AdvReac Type Severity Reaction Status Date / Time No Known Allergies Allergy Verified 07/18/22 13:29 Review of Systems Constitutional: Constitutional: Denies chills, Denies fatigue, Denies fever(s) and Reports weakness Eyes: Eyes: Reports no additional eye complaints ENT: Reports system reviewed and no additional complaints, except as documented Cardiovascular: Cardiovascular: Reports no additional cardiovascular complaints Respiratory: Respiratory: Reports no additional respiratory complaints Gastrointestinal: Gastrointestinal: Reports no additional gastrointestinal complaints Genitourinary: Genitourinary: Reports no additional female genitourinary complaints Musculoskeletal: Musculoskeletal: Reports as per HPI Integumentary/Breasts: Skin/Breast: Denies rash Neurologic: Reports as per HPI, Denies vertigo, Denies dizziness, Denies syncope, Denies numbness and Reports weakness Psychiatric: Psychiatric: Reports no additional psychiatric complaints Endocrine: Endocrine: Denies fatigue [facility] Past Medical History Medical History History of inflammatory bowel disease Hypertension Social History Social History (R
[2022-07-18 14:51] LABS: Hematocrit 36.9 % (35.0-42.0); Hemoglobin 11.8 g/dL (11.7-13.8); Mean Corpuscular Hemoglobin 28.3 pg (27.0-31.0); Mean Corpuscular Volume 88.5 fL (78.0-102.0); Mean Platelet Volume 9.7 fl (9.2-11.8); Platelet Count Result 197 K/mm3 (150-420); Red Blood Count 4.17 M/mm3 (4.20-5.40); Red Cell Distribution Width 17.6 % (11.6-14.4); White Blood Count 15.5 K/mm3 (4.8-10.8)
[2022-07-18 14:53] LABS: Appearance Urine Clear (Clear); Bilirubin Urine Negative (Negative); Blood Urine Negative (Negative); Color Urine Yellow (Yellow); Glucose Urine UA Negative (Negative); Ketones Urine Negative (Negative); Leukocyte Esterase Ur Negative LEU/UL (Negative); Nitrate Urine Negative (Negative); Protein Urine Negative (Negative); Specific Grav Ur 1.015 (1.010-1.020); Urobilinogen Urine 0.2 mg/dL (0.2-1.0); pH Urine 7.5 (5.0-8.0)
--- NOTE | 2022-07-18 14:55 | PC.NURSE ---
1449 c-collar remover per dr go verbal order
[2022-07-18 14:58] LABS: Add Urine Microscopic? NO
[2022-07-18 15:04] LABS: INR 1.1; Partial Thromboplastin Time 29.3 SEC (23.90-30.70); Prothrombin Time 11.7 Seconds (9.50-12.10)
[2022-07-18 15:08] LABS: Alanine Aminotransferase 20 U/L (14-59); Albumin Level 2.9 g/dL (3.4-5.0); Alkaline Phosphatase 63 U/L (46-116); Anion Gap 8 mmol/L (8-16); Aspartate Amino Transferase 15 U/L (15-37); Bilirubin,Total 0.7 mg/dL (0.00-1.00); Blood Urea Nitrogen 16 mg/dL (7-18); Calcium 8.9 mg/dL (8.5-10.1); Carbon Dioxide 27 mmol/L (21-32); Chloride 100 mmol/L (98-108); Digoxin 1.6 ng/mL (0.9-2.0); Estimated CRCL calculation 28 ml/min; Estimated Glomerular Filt Rate 43; Glucose 130 mg/dL (70-99); Magnesium 1.8 mg/dL (1.8-2.4); Osmolality Calculated 283 mOsm/kg (285-295); Potassium 4.1 mmol/L (3.5-5.1); Sodium 135 mmol/L (136-145); Total Protein 6.6 g/dL (6.4-8.2); Troponin I 8.5 ng/L (0.00-60.4)
[2022-07-18 16:03] VITALS: BP 116/61; PULSE 99; RESP 20; O2SAT 98
[2022-07-18 16:20] VITALS: BP 111/74; PULSE 93; RESP 20; TEMP 36.8; O2SAT 97
== END 2022-07-18 16:37 | disposition home or self-care (01) ==
PROVIDERS: Emergency Provider Emergency Medicine; PCP Internal Medicine
DX: R53.1 Weakness (principal); M87.852 Other osteonecrosis, left femur; M87.851 Other osteonecrosis, right femur; D32.9 Benign neoplasm of meninges, unspecified; W01.198A Fall on same level from slipping, tripping and stumbling with subsequent striking against other object, initial encounter; I10 Essential (primary) hypertension; Z79.01 Long term (current) use of anticoagulants
CPT/HCPCS: 36415; 70450; 70460; 70470; 71045; 72125; 72192; 80053; 80162; 81003; 83735; 84484; 85027; 85610; 85730; 93005; 99284; L0150; Q9967

== ENCOUNTER 2022-08-11 10:36 | Outpatient (CLI) | payer MEDICARE, SELFPAY ==
[2022-08-11 10:51] LABS: Appearance Urine Clear (Clear); Bilirubin Urine Negative (Negative); Blood Urine Negative (Negative); Glucose Urine UA Negative (Negative); Ketones Urine Negative (Negative); Leukocyte Esterase Ur Negative (Negative); Nitrate Urine Negative (Negative); Protein Urine 1+ (Negative); pH Urine 7.5 (5.0-8.0)
[2022-08-11 11:22] LABS: Add Urine Microscopic? YES; Bacteria Urine Trace /hpf; Color Urine Dark Yellow (Yellow); RBC Urine None seen /hpf (0-2); Squamous Epithelial Cell Urine Few /hpf (Few); WBC Urine None seen /hpf (0-3)
== END 2022-08-11 10:37 | disposition home or self-care (01) ==
LOC: CHSLAB 10:40
PROVIDERS: PCP Internal Medicine; Visit Provider Internal Medicine
DX: R35.0 Frequency of micturition (principal)
CPT/HCPCS: 81001; 87086; 87088